=== PATIENT | male | born 1995 | race Two or more races ===

== ENCOUNTER 2023-11-02 09:31 | Emergency (ER) | payer OTHER ==
[~2023-11-02] VITALS: Ht 172.7 cm; Wt 81.8 kg
[2023-11-02 09:35] VITALS: TEMP 98.4
[2023-11-02] MEDS ORDERED: CEPH-558 PO (13:21)
[2023-11-02] MEDS ORDERED: SULF-261 PO (13:22)
[2023-11-02 13:36] VITALS: BP 133/74; PULSE 100; RESP 20
== END 2023-11-02 13:42 | disposition home or self-care (01) ==
LOC: EMS 09:31
DX: L03.317 Cellulitis of buttock (principal); I10 Essential (primary) hypertension; F20.9 Schizophrenia, unspecified; Z88.8 Allergy status to other drugs, medicaments and biological substances
CPT/HCPCS: 99283